=== PATIENT | male | born 1975 | race Caucasian/White ===

== ENCOUNTER 2018-10-11 12:34 | Emergency (ER) | payer OTHER ==
[~2018-10-11] VITALS: Ht 170.2 cm; Wt 72.0 kg
[~2018-10-11 12:34] MED LIST: AZIT250T PO; DOXY100T20 PO; HYDR-4011 PO; IBUP-1542 PO
[2018-10-11 12:45] VITALS: BP 131/71; PULSE 110; RESP 18; Ht 170.2 cm; Wt 72.0 kg
[2018-10-11] MEDS ORDERED: SOD CHLORIDE 0.9% 1,000 ML IV STA (12:58)
[2018-10-11] MEDS ORDERED: KETOROLAC 30 MG INJ IV STA (12:58)
== END 2018-10-11 14:54 | disposition home or self-care (01) ==
LOC: FTE 12:34
DX: J18.9 Pneumonia, unspecified organism (principal)
CPT/HCPCS: 36415; 71045; 74176; 76705; 80053; 81001; 83690; 85025; 96361; 96374; J1885; J7030; Z7502